=== PATIENT | male | born 2000 | race Caucasian/White ===

== ENCOUNTER → 2020-03-12 | Outpatient (CLI) | payer SELFPAY | END | disposition home or self-care (01) | LOC: COVID19 14:02 | PROVIDERS: ATTEND Internal Medicine | DX: Z20.828 Contact with and (suspected) exposure to other viral communicable diseases (principal) ==

== ENCOUNTER 2021-10-31 18:21 | Emergency (ER) | payer OTHER ==
[~2021-10-31] VITALS: Wt 61.2 kg
[2021-10-31 18:29] VITALS: BP 121/82
== END 2021-10-31 20:42 | disposition home or self-care (01) ==
LOC: ED 18:21
DX: S61.201A Unspecified open wound of left index finger without damage to nail, initial encounter (principal); W26.0XXA Contact with knife, initial encounter; Y93.89 Activity, other specified; Y92.89 Other specified places as the place of occurrence of the external cause; Y99.8 Other external cause status